=== PATIENT | male | born 1985 | race Caucasian/White ===

== ENCOUNTER 2024-06-15 08:57 | Outpatient (CLI) | payer OTHER, SELFPAY ==
--- OUTSIDE RECORDS SUMMARY | 2024-06-15 09:08 | XMS_ITS | Clinical Summary ---
Author Organization [facility] Address [address] [facility], [address] [address] Phone Care Team Providers Care Sparmaker Name Role Phone Velazquez, Brendatrevor CORDERO CNP Primary Care Provider [phone] Allergies No known active allergies Medications OMEPRAZOLE PO Take 20 mg by mouth daily. Active Multiple Vitamins-Mineral s (MULTIVITAMIN PO) Take 1 Tab by mouth daily. Active aspirin 325 MG Tablet Take 325 mg by mouth every 4 hours as needed for Pain. 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 Not on file Not on file Not on file Last Filed Vital Signs Vital Sign Reading Time Taken Comments Blood Pressure 117/91 12/30/2016 9:45 AM CDT Pulse 61 12/30/2016 9:45 AM CDT Temperature 36 C (96.8 F) 12/30/2016 9:45 AM CDT Respiratory Rate 18 12/30/2016 9:45 AM CDT Oxygen Saturation 100% 12/30/2016 9:45 AM CDT Inhaled Oxygen Concentration - - Weight 77.1 kg (170 lb) 12/29/2016 3:00 PM CDT Height 182.9 cm (6') 12/29/2016 3:00 PM CDT Body Mass Index 23.06 12/29/2016 3:00 PM CDT Plan of Treatment Health Maintenance Due Date Last Done Comments Hepatitis C Virus (HCV) Screening 1985 Influenza Immunization (#1) 2024 SARS-COV-2 Immunization ( season) 2024 Respiratory Syncytial Virus (RSV) Immunization (Adult) (1 - 1-dose 75+ series) 2061 Hepatitis B Immunization Completed 998, 01/10/1997, 12/13/1996 DTaP/Tdap/Td Immunization Discontinued 2014, 05/10/2003, 02/20/2003, Additional history exists TdaP Immunization Completed 02/28/2015, 05/10/2003 Meningococcal Immunization (ACWY) Aged Out No longer eligible based on patient's age to complete this topic Pneumococcal Immunization Combined Aged Out No longer eligible based on patient's age to complete this topic Rotavirus Immunization Aged Out No lo nger eligible based on patient's age to complete this topic Insurance [place]ICAID [place] Care Teams Sparmaker Relationship Specialty Start Date End Date Velazquez, CONSUELO Gutierrez, NITA [address] [place] [address] PCP - General Family Medicine 11/27/16
[2024-06-15 19:24] LABS: Hematocrit 46.7 % (42.0-52.0); Hemoglobin 15.5 g/dL (14.0-18.0); Mean Corpuscular HGB Conc 33.2 g/dl (32-36); Mean Corpuscular Volume 87.3 fl (80-100); Mean Platelet Volume 10.9 fl (7.4-10.4); Platelet Count Result 223 k/mm3 (150-375); Red Blood Count 5.35 M/mm3 (4.6-6.20); White Blood Count 5.8 K/mm3 (4.5-10.0)
[2024-06-15 20:24] LABS: Alanine Aminotransferase 19 U/L (6-50); Albumin Level 4.7 g/dL (3.5-5.1); Alkaline Phosphatase 56 U/L (38-126); Anion Gap 11 mmol/L (4-12); Aspartate Amino Transferase 52 U/L (17-59); Bilirubin,Total 1.2 mg/dL (0.2-1.3); Blood Urea Nitrogen 19 mg/dL (9-20); Calcium 9.5 mg/dL (8.4-10.2); Carbon Dioxide 30 mmol/L (22-30); Chloride 101 mmol/L (98-107); Cholesterol 189 mg/dL (0-200); Estimated Glomerular Filt Rate > 60; Glucose 87 mg/dL (65-110); HDL Direct 49 mg/dL; Potassium 4.2 mmol/L (3.4-5.0); Sodium 142 mmol/L (137-145); Triglycerides 89 mg/dL (<150)
[2024-06-15 20:35] LABS: LDL Cholesterol Direct 100 mg/dL
== END 2024-06-15 08:58 | disposition home or self-care (01) ==
PROVIDERS: PCP Nurse Practitioner Adult Health; Visit Provider Nurse Practitioner Adult Health
DX: Z13.9 Encounter for screening, unspecified (principal); N52.9 Male erectile dysfunction, unspecified
CPT/HCPCS: 36415; 80053; 80061; 84402; 84403; 84443; 85027